=== PATIENT | female | born 1970 | race Caucasian/White ===

== ENCOUNTER 2019-03-01 21:45 | Emergency (ER) | payer BC ==
[~2019-03-01] VITALS: Ht 167.6 cm; Wt 145.2 kg
[2019-03-01] MEDS ORDERED: COUMADIN 5 MG TA5 M1 PO (21:52)
[2019-03-01] MEDS ORDERED: COUMADIN6 MG PO (21:52)
[2019-03-01] MEDS ORDERED: SYNTHROID175 MCG PO (21:53)
[2019-03-01] MEDS ORDERED: PROPRANOLOL 4040 M1 PO (21:53)
[2019-03-01 22:39] LABS: HEMATOCRIT 41.3 % (37.0-47.0); HEMOGLOBIN 13.7 gm/dL (12.0-15.0); MCH 28.6 pg (26.0-34.0); MCHC 33.2 g/dL (28.0-37.0); MPV 8.7 fl. (7.2-11.1); RBC 4.8 mil/uL (4.20-5.00); RDW-CV 14.2 % (10.5-14.5); WBC 11.5 thou/uL (4.0-11.0)
[2019-03-01 22:49] LABS: PROTIME 29.9 Seconds (9.20-11.50)
[2019-03-02 01:01] VITALS: BP 124/70
== END 2019-03-02 01:01 | disposition home or self-care (01) ==
LOC: M.ERS 21:45
PROVIDERS: Emergency Medicine Emergency Medical Services
DX: R04.0 Epistaxis (principal); I10 Essential (primary) hypertension; Z98.890 Other specified postprocedural states; Z88.5 Allergy status to narcotic agent; Z88.8 Allergy status to other drugs, medicaments and biological substances